=== PATIENT | female | born 1985 | race Asian ===

== ENCOUNTER 2016-08-27 16:51 | Outpatient (CLI) | payer MEDICAID ==
[~2016-08-27] VITALS: Ht 152.4 cm; Wt 52.3 kg
[2016-08-27 16:53] VITALS: BP 97/55
[2016-08-27] MEDS ORDERED: PREN1TAB60 PO (17:18)
[2016-08-27 18:06] LABS: HIV 1&2 ANTIBODY SCREEN Nonreactive (Nonreactive); HIV-1 p24 ANTIGEN Nonreactive (Nonreactive)
== END 2016-08-27 18:26 | disposition home or self-care (01) ==
LOC: LDOP 16:51
PROVIDERS: ATTEND Obstetrics & Gynecology
DX: O46.93 Antepartum hemorrhage, unspecified, third trimester (principal); Z3A.39 39 weeks gestation of pregnancy
CPT/HCPCS: 36415; 59025; 85025; 86592; 86703; 86762; 86850; 86900; 87340; 87899; 99201; G0435; G0463

== ENCOUNTER 2016-08-28 04:41 | Inpatient (IN) | payer MEDICAID ==
[~2016-08-28] VITALS: Ht 152.4 cm; Wt 52.3 kg
[~2016-08-28 04:41] MED LIST: PREN1TAB60 PO
[2016-08-28] MEDS ORDERED: OXYTOCIN 30U/ 0.9% NaCL 500ML 500 ML IV ONE (04:57)
[2016-08-28] MEDS: D5%-LACTATED RINGERS 1,000 ML IV SCH ×3 (04:57→20:57)
[2016-08-28] MEDS ORDERED: ONDANSETRON 2MG/ML, 2ML IVPush PRN (05:00)
[2016-08-28] MEDS ORDERED: FENTANYL PF 100 MCG/2ML IVPush PRN (05:00)
[2016-08-28] MEDS ORDERED: PENICILLIN GK 5,000,000 UNITS in DEXTROSE 5% 100 ML IVPB ONE (05:00)
[2016-08-28] MEDS ORDERED: CALCIUM CARBONATE 500 MG TAB.CHEW PO PRN ×2 (05:00→07:00)
[2016-08-28] MEDS ORDERED: FENTANYL PF 100 MCG/2ML IV PRN (05:00)
[2016-08-28 05:01] VITALS: BP 102/67
[2016-08-28] MEDS ORDERED: ONDANSETRON 2MG/ML, 2ML ONE (05:03)
[2016-08-28] MEDS ORDERED: FENTANYL PF 100 MCG/2ML ONE (05:03)
[2016-08-28] MEDS ORDERED: OXYTOCIN 30U/ 0.9% NaCL 500ML 500 ML ONE ×2 (05:03→06:43)
[2016-08-28] MEDS: LACTATED RINGERS 1,000 ML IV SCH ×3 (05:06→20:57)
[2016-08-28] MEDS ORDERED: NEWBORN KIT ONE (05:31)
[2016-08-28] MEDS ORDERED: LIDOCAINE 1%, 20ML ONE (05:42)
[2016-08-28] MEDS ORDERED: MISOPROSTOL 200 MCG TABLET ONE (05:42)
[2016-08-28] MEDS: OXYTOCIN 30U/ 0.9% NaCL 500ML 500 ML IV SCH ×2 (06:49→16:33)
[2016-08-28] MEDS ORDERED: METOCLOPRAMIDE 5 MG/ML, 2ML IV PRN (07:00)
[2016-08-28] MEDS ORDERED: ACETAMINOPHEN 325 MG TABLET PO PRN ×2 (07:00)
[2016-08-28] MEDS ORDERED: IBUPROFEN 600 MG TABLET PO PRN (07:00)
[2016-08-28] MEDS ORDERED: HYDROcodone/APAP 5/325 TABLET PO PRN ×2 (07:00)
[2016-08-28] MEDS ORDERED: ONDANSETRON 2MG/ML, 2ML IV PRN (07:00)
[2016-08-28] MEDS ORDERED: DOCUSATE 100 MG CAPSULE PO PRN (07:00)
[2016-08-28 09:00] VITALS: BP 97/59
[2016-08-28] MEDS ORDERED: PRENATAL VIT/IRON/FA 1 EACH TABLET PO SCH (09:00)
[2016-08-28] MEDS ORDERED: PENICILLIN GK 2,500,000 UNITS in DEXTROSE 5% 100 ML IV SCH (09:00)
[2016-08-28] MEDS ORDERED: DIPH,PERTUSS(ACELL),TET VAC/PF NC IM-VACC ONE ×2 (12:31→13:00)
[2016-08-28 13:00] VITALS: BP 92/53
[2016-08-28 19:30] VITALS: BP 96/63
[2016-08-29 00:07] VITALS: BP 101/59
[2016-08-29 04:15] VITALS: BP 92/58
[2016-08-29 07:35] VITALS: BP 91/56
[2016-08-30 07:54] VITALS: BP 93/61
[2016-08-30] MEDS ORDERED: IBUP-1222 PO (08:22)
[2016-08-30] MEDS ORDERED: DOCU-30 PO (08:24)
== END 2016-08-30 10:45 | disposition home or self-care (01) | DRG 775 ==
LOC: LDOP 04:41 → LDIP 04:58 → 2NW 08:57
PROVIDERS: ADMIT Obstetrics & Gynecology; ATTEND Obstetrics & Gynecology
PROC: 10E0XZZ Delivery of Products of Conception, External Approach (ICD-10-PCS; principal; 2016-08-28)
PROC: 0KQM0ZZ Repair Perineum Muscle, Open Approach (ICD-10-PCS; 2016-08-28)
DX: O99.824 Streptococcus B carrier state complicating childbirth (principal); O77.0 Labor and delivery complicated by meconium in amniotic fluid; O70.1 Second degree perineal laceration during delivery; Z37.0 Single live birth; Z3A.39 39 weeks gestation of pregnancy
CPT/HCPCS: 36415; 85025; 90715; J2540; J2590; J7120